=== PATIENT | male | born 1960 | race Caucasian/White ===

== ENCOUNTER 2020-04-29 13:13 | Emergency (ER) | payer BC, MEDICARE ==
--- NOTE | 2020-04-29 14:15 | REP ---
INDICATION: Coronavirus workup. COMPARISON: None. TECHNIQUE: Single frontal portable view of the chest is performed. FINDINGS: There is no acute infiltrate. The heart is not significantly enlarged. The mediastinal silhouette is unremarkable. Metallic plate and screws are seen in the lower cervical spine. IMPRESSION: No acute pulmonary disease. <Electronically signed by Jeffrey Kay > 04/29/20 [id number]
[2020-04-29 14:36] LABS: BASO % 0.6 % (0.0-1.0); HEMATOCRIT 46.5 % (42.0-52.0); LYMPH # 0.5 10^3/uL (1.5-5.0); LYMPH % 13.6 % (24.0-44.0); MEAN CORPUSCULAR HEMOGLOBIN 30.2 pg (27.0-33.0); MEAN CORPUSCULAR HGB CONC 34.4 g/dl (32.0-36.5); MEAN CORPUSCULAR VOLUME 87.9 fl (80.0-96.0); MONO # 0.2 10^3/uL (0.0-0.8); MONO % 6.6 % (0.0-5.0); NEUTROPHILS # 2.6 10^3/uL (1.5-8.5); NEUTROPHILS % 78.9 % (36.0-66.0); PLATELET COUNT, AUTOMATED 166 10^3/uL (150-450); RED BLOOD COUNT 5.29 10^6/uL (4.30-6.10); WHITE BLOOD COUNT 3.3 10^3/uL (4.0-10.0)
[2020-04-29 14:54] LABS: INR 1.14; PROTHROMBIN TIME 14.9 SECONDS (12.5-14.3)
[2020-04-29 14:55] LABS: PARTIAL THROMBOPLASTIN TIME 31.2 SECONDS (24.2-38.5)
[2020-04-29 14:57] LABS: D-DIMER QUANT 317.7 ng/ml (<500)
[2020-04-29 15:21] LABS: ALT/SGPT 52 U/L (12-78); BLOOD UREA NITROGEN 14 MG/DL (7-18); CALCIUM LEVEL 9.1 MG/DL (8.8-10.2); CARBON DIOXIDE LEVEL 21 MEQ/L (21-32); CHLORIDE LEVEL 107 MEQ/L (98-107); CK-MB VALUE MASS 1.3 NG/ML (<3.6); CPK CREATINE PHOSPHOKINASE 174 U/L (39-308); CREATININE FOR GFR 1.13 MG/DL (0.70-1.30); GLOMERULAR FILTRATION RATE > 60.0 (>49); GLUCOSE, FASTING 123 MG/DL (70-100); LDH LACTATE DEHYDROGENASE 257 U/L (87-241); MB/CK RELATIVE INDEX 0.75 (< OR =4); POTASSIUM SERUM 3.9 MEQ/L (3.5-5.1); SODIUM LEVEL 139 MEQ/L (136-145); TOTAL PROTEIN 7.4 GM/DL (6.4-8.2)
[2020-04-29 15:22] LABS: ALBUMIN 4.2 GM/DL (3.2-5.2); C REACTIVE PROTEIN QUANTITATIV 3.18 MG/DL (0.00-0.30); FERRITIN 849 NG/ML (26-388); MAGNESIUM LEVEL 1.9 MG/DL (1.8-2.4); TROPONIN I < 0.02 NG/ML (< 0.10)
[2020-04-29 16:30] VITALS: BP 171/101
[2020-04-29] MEDS ORDERED: NS 1,000 ML IV SCH (17:16)
[2020-04-29] MEDS ORDERED: ALBUTEROL 90 MCG/ACT 8GM HFA INHALER INH PRN (17:30)
[2020-04-29] MEDS ORDERED: diphenhydrAMINE 50MG/ML VIAL (J1200) IV PRN (17:30)
[2020-04-29] MEDS ORDERED: EPINEPHrine INJ 1 MG/ML 1ML AMP IM PRN (17:30)
[2020-04-29] MEDS ORDERED: BAMLANIVIMAB 700 MG in NS 250 ML IV ONE (17:30)
[2020-04-29] MEDS ORDERED: methylPREDNISolone 125MG 2ML VIAL IV PRN (17:30)
[2020-04-29] MEDS ORDERED: ALBUTEROL SULFATE 2.5 MG/0.5 ML INH NEB SOLN INH PRN (17:30)
--- NOTE | 2020-04-29 17:32 | IPNPDOC ---
Text Note Date of Service The patient was seen on 04/29/20. NOTE Patient was seen in ER room, resting comfortably on the bed. Physical exam pe rtinent for diminished lung sounds bilaterally. Patient agreed to receive infusional of monoclonal antibody. VS,Fishbone, I+O VS, Fishbone, I+O Laboratory Tests 04/29/20 14:20 Vital Signs Date Time Temp Pulse Resp B/P (MAP) Pulse Ox O2 Delivery O2 Flow Rate FiO2 04/29/20 16:30 91 171/101 (124) 98 04/29/20 15:00 18 Room Air 04/29/20 13:32 97.8 MELINDA MORRISSEY DO Apr 29, 2020 17:32
--- NOTE | 2020-04-30 08:55 | ECGEPIP ---
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
== END 2020-04-29 20:00 | disposition left against medical advice (07) ==
LOC: M ED 13:13
DX: U07.1 COVID-19 (principal); R06.00 Dyspnea, unspecified; E78.5 Hyperlipidemia, unspecified; F41.9 Anxiety disorder, unspecified

== ENCOUNTER 2021-07-10 18:20 | Observation (INO) | payer BC, MEDICARE ==
[~2021-07-10] VITALS: Ht 188 cm; Wt 125.3 kg
[2021-07-10] MEDS ORDERED: ATOR1TAB19 (18:38)
[2021-07-10] MEDS ORDERED: TAMS1CAP17 (18:38)
[2021-07-10] MEDS ORDERED: TADA10TA (18:38)
[2021-07-10] MEDS ORDERED: ERGO500029 (18:38)
[2021-07-10] MEDS ORDERED: PARO40TA2 (18:38)
[2021-07-10 19:10] LABS: BASO # 0.1 10^3/uL (0.0-0.2); BASO % 1.7 % (0.0-1.0); EOS # 0.3 10^3/uL (0.0-0.5); EOS % 5.9 % (0.0-3.0); HEMATOCRIT 43.2 % (42.0-52.0); HEMOGLOBIN 15.8 g/dl (13.5-17.5); LYMPH # 1.5 10^3/uL (1.5-5.0); LYMPH % 31.7 % (24.0-44.0); MEAN CORPUSCULAR HEMOGLOBIN 31.6 pg (27.0-33.0); MEAN CORPUSCULAR VOLUME 86.4 fl (80.0-96.0); MONO # 0.5 10^3/uL (0.0-0.8); MONO % 10.7 % (2.0-8.0); NEUTROPHILS # 2.3 10^3/uL (1.5-8.5); NEUTROPHILS % 49.8 % (36.0-66.0); PLATELET COUNT, AUTOMATED 212 10^3/uL (150-450); WHITE BLOOD COUNT 4.6 10^3/uL (4.0-10.0)
[2021-07-10] MEDS ORDERED: LORazepam 2 MG/ML VIAL IV STA (19:11)
[2021-07-10 19:18] LABS: MEAN CORPUSCULAR HGB CONC 36.6 g/dl (32.0-36.5)
[2021-07-10 19:21] LABS: INR 0.96; PROTHROMBIN TIME 13.2 SECONDS (12.7-14.5)
[2021-07-10 19:22] LABS: PARTIAL THROMBOPLASTIN TIME 29.8 SECONDS (25.9-37.0)
[2021-07-10 19:34] LABS: CK-MB VALUE MASS 3.6 NG/ML (<3.6); MB/CK RELATIVE INDEX 1.37 (< OR =4)
[2021-07-10 19:43] LABS: ALBUMIN 3.8 GM/DL (3.2-5.2); ALT/SGPT 55 U/L (12-78); BILIRUBIN,DIRECT < 0.1 MG/DL (0.0-0.2); BILIRUBIN,TOTAL 0.8 MG/DL (0.2-1.0); BLOOD UREA NITROGEN 13 MG/DL (7-18); CALCIUM LEVEL 8.2 MG/DL (8.8-10.2); CARBON DIOXIDE LEVEL 24 MEQ/L (21-32); CHLORIDE LEVEL 109 MEQ/L (98-107); CREATININE FOR GFR 0.96 MG/DL (0.70-1.30); GLOMERULAR FILTRATION RATE > 60.0 (>49); GLUCOSE, FASTING 106 MG/DL (70-100); POTASSIUM SERUM 3.5 MEQ/L (3.5-5.1); SODIUM LEVEL 139 MEQ/L (136-145); TOTAL PROTEIN 6.5 GM/DL (6.4-8.2)
[2021-07-10] MEDS ORDERED: ISOVUE-370 76% 100ML VIAL As Ordered ONE (19:47)
[2021-07-10] MEDS ORDERED: hydrALAZINE 20MG/ML 1ML VIAL (J0360 PER 20MG) IV ONE (20:20)
[2021-07-10] MEDS ORDERED: MAALOX 30 ML SUSP *UDC PO PRN (22:40)
[2021-07-10] MEDS ORDERED: MOM 30ML SUSPENSION UDC PO PRN (22:40)
[2021-07-10 23:33] LABS: RSV AMPLIFICATION NEGATIVE (NEGATIVE)
[2021-07-11] MEDS ORDERED: ZOLP12.518 PO (00:30)
[2021-07-11] MEDS ORDERED: PARO40TA2 PO (00:30)
[2021-07-11] MEDS ORDERED: ATOR1TAB19 PO (00:30)
[2021-07-11] MEDS ORDERED: HOME MED LIST COMPLETE! XX SCH (00:30)
[2021-07-11] MEDS ORDERED: CIAL10TA PO (00:30)
[2021-07-11] MEDS ORDERED: FLOM0.4C39 PO (00:30)
[2021-07-11] MEDS ORDERED: ERGO500029 PO (00:30)
[2021-07-11 00:45] VITALS: BP 154/85
[2021-07-11] MEDS: ACETAMINOPHEN TAB 650MG DOSE (2X325MG) PO PRN ×3 (01:08→12:57)
[2021-07-11] MEDS ORDERED: zolPIDEM TARTRATE 5 MG TAB PO ONE (02:00)
[2021-07-11] MEDS ORDERED: hydrALAZINE 20MG/ML 1ML VIAL (J0360 PER 20MG) IV PRN (03:00)
[2021-07-11 04:00] VITALS: BP 154/85
[2021-07-11 06:00] VITALS: BP 148/79
[2021-07-11] MEDS ORDERED: HEPARIN SOD (PORCINE) 5000UNITS/ML 1ML VIAL/SYRINGE SC SCH (06:00)
[2021-07-11] MEDS ORDERED: SODIUM CHLORIDE 0.9% INJ 10 ML SYR IV ONE ×2 (06:00)
[2021-07-11] MEDS ORDERED: diazePAM 10MG/2ML SYRINGE (J3360 PER 5MG) IV PRN (08:00)
[2021-07-11] MEDS ORDERED: ALPRAZolam 0.5 MG TAB PO ONE (08:00)
[2021-07-11] MEDS ORDERED: ASPIRIN 81MG ENTERIC TABLET PO SCH (09:00)
[2021-07-11] MEDS ORDERED: hydroCHLOROthiazide 12.5 MG CAPSULE PO SCH (09:00)
[2021-07-11] MEDS ORDERED: ATORVASTATIN 10 MG TAB PO SCH (09:00)
[2021-07-11] MEDS ORDERED: PARoxetine 20MG TABLET PO SCH (09:00)
[2021-07-11] MEDS ORDERED: TAMSULOSIN 0.4 MG CAP PO SCH (09:00)
[2021-07-11] MEDS ORDERED: DOCUSATE SODIUM 100MG CAPSULE PO SCH (09:00)
[2021-07-11] MEDS ORDERED: amLODIPine 5 MG TAB PO SCH (09:00)
[2021-07-11 09:28] VITALS: BP 142/88
[2021-07-11 10:13] VITALS: BP 142/88
[2021-07-11] MEDS ORDERED: AMLO1TAB24 PO (15:05)
[2021-07-11] MEDS ORDERED: ASPI-551 PO (15:05)
[2021-07-11] MEDS ORDERED: HYDR12CA PO (15:05)
[2021-07-11] MEDS ORDERED: zolPIDEM TARTRATE 5 MG TAB PO SCH (21:00)
== END 2021-07-11 16:18 | disposition home or self-care (01) ==
LOC: M ED 18:20 → EDBD 18:20 → M ED INP 18:21 → M PCU 07-11 00:39
PROVIDERS: ADMIT Internal Medicine; ATTEND Internal Medicine
DX: I16.1 Hypertensive emergency (principal); I65.23 Occlusion and stenosis of bilateral carotid arteries; F41.9 Anxiety disorder, unspecified; G47.00 Insomnia, unspecified; N40.0 Benign prostatic hyperplasia without lower urinary tract symptoms; E55.9 Vitamin D deficiency, unspecified; R29.700 NIHSS score 0; D69.3 Immune thrombocytopenic purpura; R51.9 Headache, unspecified; R20.2 Paresthesia of skin; R42 Dizziness and giddiness; R11.0 Nausea; E78.5 Hyperlipidemia, unspecified; Z79.899 Other long term (current) drug therapy; Z79.82 Long term (current) use of aspirin
CPT/HCPCS: 70450; 70496; 70498; 70551; 71045; 80048; 80076; 82550; 82553; 84443; 84484; 85025; 85610; 85730; 87631; 93005; 93041; 93306; 94760; 96374; 96375; 99285; J0360; J2060; J3360; Q9967